=== PATIENT | female | born 1995 | race Caucasian/White ===

== ENCOUNTER → 2018-01-08 | Outpatient (CLI) | payer BC ==
--- NOTE | 2018-01-08 12:27 | DIAGNOSTIC IMAGING REPORT ---
[facility] CLINICAL HISTORY: 22 years-old Female presenting with N20.0 [id number]. TECHNIQUE: Single supine view of the abdomen was obtained. COMPARISON: None. FINDINGS: Mild stool burden throughout the colon. Posterior small bowel gas, nonspecific. No gross evidence of bowel obstruction. No gross pneumoperitoneum. Allowing for bowel gas and stool, no calcifications to suggest nephrolithiasis. No calcifications along the courses of the ureters. Osseous structures normal. Lung bases clear. IMPRESSION: 1. No radiographic evidence of renal or ureteral calculi. Electronically signed by: Prasanna Basilio M.D. 01/08/2018 12:26 PM Dictated Date/Time: 01/08/2018 12:24 PM
== END | disposition home or self-care (01) ==
LOC: C.RAD 12:07
PROVIDERS: ATTEND Urology
DX: N20.0 Calculus of kidney (principal)